=== PATIENT | female | born 2000 | race Caucasian/White ===

== ENCOUNTER 2024-02-09 21:53 | Emergency (ER) | payer MEDICAID ==
[~2024-02-09] VITALS: Ht 167.6 cm; Wt 86.6 kg
[2024-02-09] MEDS: ipratropium/albuterol 3ml nebule NEB ONE (22:09)
[2024-02-09 22:13] VITALS: PULSE 78; RESP 22; O2SAT 100
[2024-02-09 22:19] VITALS: PULSE 96; RESP 20; O2SAT 100
[2024-02-09] MEDS: LORazepam 1 MG tablet PO ONE ×2 (22:42→22:48)
[2024-02-09] MEDS ORDERED: ALBU18HF2 INH (23:09)
[2024-02-09 23:15] VITALS: BP 116/66; PULSE 58; RESP 16; TEMP 98.6; O2SAT 98
== END 2024-02-09 23:16 | disposition home or self-care (01) ==
LOC: ER 21:54
DX: J98.01 Acute bronchospasm (principal); F41.9 Anxiety disorder, unspecified; R06.82 Tachypnea, not elsewhere classified; Z88.0 Allergy status to penicillin; Z88.1 Allergy status to other antibiotic agents
CPT/HCPCS: 71045; 94640; 94760; 99283